=== PATIENT | male | born 1995 | race American Indian/Alaskan Native ===

== ENCOUNTER 2019-09-06 14:37 | Emergency (ER) | payer SELFPAY ==
[2019-09-06 14:43] VITALS: BP 131/85
[2019-09-06] MEDS ORDERED: ACETAMINOPHEN 500 MG TAB PO ONE (15:30)
[2019-09-06] MEDS ORDERED: ACETAMINOPHEN 500 MG TAB ONE (15:31)
[2019-09-06] MEDS ORDERED: dexAMETHasone 20 MG/5 ML VIAL IM ONE (16:07)
[2019-09-06] MEDS ORDERED: PENICILLIN G BENZATHINE 1.2 MILLION UNIT/2 ML INJ IM ONE (16:07)
[2019-09-06] MEDS ORDERED: IBUPROFEN 800 MG TAB PO ONE (16:08)
--- NOTE | 2019-09-06 16:12 | Emergency Department Report ---
Minor Respiratory - HPI Chief Complaint: Sore Throat Stated Complaint: THROAT PAIN Time Seen by Provider: 09/06/19 16:07 Duration: 1 Day Pain Location: Throat Severity: mild Minor Respiratory: Yes Sore Throat, Yes Able to Tolerate Fluids, Yes Fever, No Rhinorrhea, No Ear Pain, No Cough, No Hemoptysis, No Chest Pain, No Shortness of Breath Other History: Ernst is a healthy 23-year-old male without past medical history presents with sore throat fever since yesterday. He has body aches chills. Denies headache. Denies cough. Denies sinus congestion. He has been around multiple sick contacts. 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 ED Review of Systems ROS: Stated complaint: THROAT PAIN Other details as noted in HPI Constitutional: fever, malaise ENT: throat pain. denies: congestion Respiratory: denies: cough Gastrointestinal: denies: abdominal pain, nausea, vomiting Skin: denies: rash, lesions Neurological: denies: headache ED Past Medical Hx - Past Medical History Previous Medical History?: No - Surgical History Past Surgical History?: No - Social History Smoking Status: Current Every Day Smoker Minor Respiratory Exam - Exam General: Vital signs noted. No distress. Alert and acting appropriately. HEENT: Yes Pharyngeal Erythema, Yes Pharyngeal Exudates, Yes Moist Mucous Membranes, No Rhinorrhea, No Conjuctival Injection Neck: Yes Supple Lungs: Yes Good Air Exchange, No Wheezes, No Ronchi, No Stridor, No Cough, No Labored Respirations, No Retractions Heart: Yes Regular, No Murmur Abdomen: No Tenderness Skin: No Rash, No Edema Neurologic: Alert and oriented, no deficits. Musculoskeletal: Unremarkable. ED Course Vital Signs 09/06/19 14:41 Temperature 102.9 F H Pulse Rate 105 H Respiratory 20 Rate Blood Pressure 131/85 O2 Sat by Pulse 95 Oximetry ED Medical Decision Making - Medical Decision Making Acute streptococcal pharyngitis according to [facility] criteria. Ernst received Bicillin, Decadron antipyretics and analgesics in the emergency department. Discharged with supportive care instructions. Critical care attestation.: If time is entered above; I have spent that time in minutes in the direct care of this critically ill patient, excluding procedure time. ED Disposition Clinical Impression: Strep throat Disposition: DC- TO HOME OR SELFCARE Is pt being admited?: No Does the pt Need Aspirin: No Condition: Stable Instructions: Strep Throat (ED) Referrals: UGO DIAZ MD [Staff Physician] - as needed [facility] [Outside] - as needed Forms: Work/School Release Form(ED)
== END 2019-09-06 17:17 | disposition home or self-care (01) ==
LOC: ED 14:37
DX: J02.0 Streptococcal pharyngitis (principal); F17.200 Nicotine dependence, unspecified, uncomplicated
CPT/HCPCS: 96372; 99282; J0561; J1100